=== PATIENT | female | born 2000 | race Caucasian/White ===

== ENCOUNTER 2021-12-27 03:37 | Emergency (ER) | payer OTHER ==
[2021-12-27 03:52] VITALS: TEMP 97.9; BMI 20.6
[2021-12-27 05:54] LABS: BASO % 1.9 % (0-2.0); EOS % 5.6 % (0-4.5); HEMATOCRIT 38.1 % (32.4-45.2); HEMOGLOBIN 12.7 GM/dL (10.7-15.3); LYMPH % 24.3 % (8-40); MCH 28.3 pg (25.7-33.7); MCHC 33.4 g/dl (32.0-36.0); MEAN CELL VOLUME 84.9 fl (80-96); MEAN PLT VOLUME 9.2 fl (7.5-11.1); MONO % 6.2 % (3.8-10.2); PLATELET COUNT 262 10^3/uL (134-434); RBC 4.49 M/mm3 (3.60-5.2); RDW 12.7 % (11.6-15.6); WHITE BLOOD COUNT 5.7 K/mm3 (4.0-10.0)
[2021-12-27 06:04] LABS: CHLORIDE 107 mmol/L (98-107); SODIUM 141 mmol/L (136-145)
[2021-12-27 06:06] LABS: CALCIUM 9.5 mg/dL (8.5-10.1)
[2021-12-27 06:07] LABS: ALBUMIN 4.3 g/dl (3.4-5.0); ANION GAP 7 MMOL/L (8-16); BLOOD UREA NITROGEN 9.3 mg/dL (7-18); CO2 27 mmol/L (21-32); GLUCOSE,RANDOM 100 mg/dL (74-106)
[2021-12-27 06:10] LABS: CREATININE 0.6 mg/dL (0.55-1.3); SGOT/AST 9 U/L (15-37); SGPT/ALT 16 U/L (13-61)
[2021-12-27 06:12] LABS: BILIRUBIN,TOTAL 1.3 mg/dL (0.2-1); TOT PROT 7.3 g/dl (6.4-8.2)
[2021-12-27 06:13] LABS: ALK PHOS 65 U/L (45-117)
[2021-12-27 08:48] VITALS: BP 116/79; PULSE 88
== END 2021-12-27 08:55 ==
LOC: FER 03:37
DX: R00.2 Palpitations (principal)
CPT/HCPCS: 36415; 71275-TC; 80053; 81025; 82550; 84443; 84484; 85025; 85379; 93005; 99285-25; C9803; Q9967; U0003; U0005